=== PATIENT | male | born 2000 | race Caucasian/White ===

== ENCOUNTER 2021-04-11 14:02 | Emergency (ER) | payer SELFPAY ==
[~2021-04-11] VITALS: Ht 177.8 cm; Wt 59.1 kg
[~2021-04-11 14:02] MED LIST: KEFLEX500 MG PO; NAPROSYN500 MG PO; VIBRAMYCIN 100100 MG PO
[2021-04-11 14:08] VITALS: Ht 177.8 cm; Wt 59.1 kg
[2021-04-11] MEDS ORDERED: OMNICEF300 MG PO (14:28)
[2021-04-11 15:18] VITALS: BP 110/56
== END 2021-04-11 15:19 | disposition home or self-care (01) ==
LOC: D.ER 14:02
DX: J02.9 Acute pharyngitis, unspecified (principal)

== ENCOUNTER 2021-05-09 02:12 | Emergency (ER) | payer SELFPAY ==
[~2021-05-09] VITALS: Ht 177.8 cm; Wt 63.6 kg
[~2021-05-09 02:12] MED LIST changes: +OMNICEF300 MG PO
[2021-05-09 02:20] VITALS: BP 124/70; Ht 177.8 cm; Wt 63.6 kg
== END 2021-05-09 05:34 | disposition left against medical advice (07) ==
LOC: D.ER 02:12
DX: S09.90XA Unspecified injury of head, initial encounter (principal); X58.XXXA Exposure to other specified factors, initial encounter; Z53.21 Procedure and treatment not carried out due to patient leaving prior to being seen by health care provider